=== PATIENT | female | born 1955 | race Caucasian/White ===

== ENCOUNTER 2023-07-20 15:30 | Emergency (ER) | payer OTHER ==
[~2023-07-20] VITALS: Ht 165.1 cm; Wt 90.0 kg
[2023-07-20 16:01] VITALS: BP 144/84; PULSE 83; RESP 16; TEMP 98.2; O2SAT 98
[2023-07-20] MEDS ORDERED: BENZ-38 PO (18:40)
[2023-07-20] MEDS ORDERED: PRED20TA PO (18:40)
[2023-07-20] MEDS ORDERED: ALBU8HFA INH (18:40)
== END 2023-07-20 20:01 | disposition home or self-care (01) ==
LOC: ER 15:30
DX: J06.9 Acute upper respiratory infection, unspecified (principal); Z88.5 Allergy status to narcotic agent
CPT/HCPCS: 71045; 99283